=== PATIENT | female | born 1965 | race American Indian/Alaskan Native ===

== ENCOUNTER 2021-09-09 05:24 | Emergency (ER) | payer OTHER ==
[2021-09-09] MEDS ORDERED: ACETAMINOPHEN 325 MG TAB PO ONE (06:24)
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
[2021-09-09 07:39] VITALS: BP 169/89
== END 2021-09-09 07:42 ==
LOC: ED 05:24
DX: S01.511A Laceration without foreign body of lip, initial encounter (principal); R03.0 Elevated blood-pressure reading, without diagnosis of hypertension; M79.602 Pain in left arm; R68.84 Jaw pain; V89.2XXA Person injured in unspecified motor-vehicle accident, traffic, initial encounter; Y93.89 Activity, other specified; Y92.89 Other specified places as the place of occurrence of the external cause; Y99.8 Other external cause status
CPT/HCPCS: 70110; 99283